=== PATIENT | male | born 1970 | race Caucasian/White ===

== ENCOUNTER 2016-09-27 11:00 | Day surgery (SDC) | payer OTHER ==
[2016-09-27] MEDS ORDERED: DIPHENHYDRAMINE HCL 50 MG/ML VIAL ONE (11:59)
[2016-09-27] MEDS ORDERED: ONDANSETRON HCL INJ/PF 4 MG/2 ML SDV ONE (12:00)
[2016-09-27] MEDS ORDERED: NALOXONE HCL INJ/PF 0.4 MG/1 ML SDV ONE (12:00)
[2016-09-27] MEDS ORDERED: FENTANYL CITRATE INJ/PF 100 MCG/2 ML AMPUL ONE (12:00)
[2016-09-27] MEDS ORDERED: FLUMAZENIL INJ 0.5 MG/5 ML VIAL IV ONE (12:01)
[2016-09-27] MEDS ORDERED: GLUCAGON,HUMAN RECOMB 1 MG INJ ONE (12:01)
[2016-09-27] MEDS ORDERED: EPINEPHRINE INJ 1 MG/10 ML DISP.SYRIN ONE (12:01)
[2016-09-27] MEDS: MIDAZOLAM 2 MG/2 ML INJ ONE ×3 (12:15→12:25)
[2016-09-27 13:31] VITALS: BP 130/76
--- NOTE | 2016-09-27 14:12 | Operative Report ---
Operative Report DATE OF SURGERY: 09/27/16 Operative Report: The risks, benefits and alternatives of the procedure including risks of bleeding, perforation requiring surgery are explained to the patient in detail and informed consent is obtained. Patient is taken back to the endoscopy suite and placed in the left, lateral decubital position. Timeout is called. Conscious sedation medications are provided. An Olympus videoscope was inserted into the patient's rectum. The scope was then gradually advanced all the way to the cecum. The cecum was identified by the usual anatomical landmarks including the ileocecal valve as well as the appendiceal office. Photodocumentation is obtained. The scope was then sequentially pulled back via the various segments of the colon including the ascending colon, hepatic flexure, transverse colon, splenic flexure, descending colon and finally into the rectosigmoid colon. Retroflexion maneuvers performed. PREOPERATIVE DIAGNOSIS: Blood in stools. POSTOPERATIVE DIAGNOSIS: Mild right-sided inflammation. Internal hemorrhoids OPERATION: Colonoscopy with biopsy SURGEON: JOSELITO HALL ANESTHESIA: Moderate Sedation - 5 mg of Versed, 100 g of fentanyl. Conscious sedation monitoring time 30 minutes. TISSUE REMOVED OR ALTERED: Right-sided mucosa: Specimen obtained rule out lymphocytic, collagenous colitis COMPLICATIONS: None. ESTIMATED BLOOD LOSS: none. INTRAOPERATIVE FINDINGS: None. PROCEDURE: Patient tolerated the procedure well. No immediate postprocedure complications are noted. Patient discharged in good condition. Discharge date 09/27/2016 Discharge diet: Regular. Discharge activity: Regular. 2-3 week follow-up to discuss findings. Patient is instructed to call the office or proceed to the emergency room should there be any further problems or questions. We'll await on biopsies.
== END 2016-09-27 13:31 | disposition home or self-care (01) ==
LOC: END 11:00
PROVIDERS: ATTEND Internal Medicine Gastroenterology
PROC: 0DBF8ZX Excision of Right Large Intestine, Via Natural or Artificial Opening Endoscopic, Diagnostic (ICD-10-PCS; principal; 2016-09-27 12:00)
DX: K52.9 Noninfective gastroenteritis and colitis, unspecified (principal); K64.8 Other hemorrhoids; K62.5 Hemorrhage of anus and rectum; Z79.899 Other long term (current) drug therapy
CPT/HCPCS: 45380; 88305 ×2; J2250; J3010; J0171; J1200; J1610; J2310; J2405; J3490

== ENCOUNTER 2018-09-03 20:06 | Emergency (ER) | payer OTHER ==
[2018-09-03 22:56] LABS: ABSOLUTE BASOPHILS # (AUTO) 0.1 10^3/uL (0.0-0.2); ABSOLUTE EOSINOPHILS # (AUTO) 0.2 10^3/uL (0.0-0.6); ABSOLUTE LYMPHOCYTES (AUTO) 1.9 10^3/uL (0.5-4.7); ABSOLUTE MONOCYTES (AUTO) 0.6 10^3/uL (0.1-1.4); ABSOLUTE NEUT (AUTO) 5.4 10^3/uL (1.7-8.2); BASOPHILS % (AUTO) 0.8 % (0-2); EOSINOPHILS % (AUTO) 2.2 % (0-6); HEMATOCRIT 43.5 % (37.9-51.0); HEMOGLOBIN 15.1 g/dL (13.5-17.0); LYMPHOCYTES % (AUTO) 23.1 % (13-45); MEAN CORPUSCULAR HEMOGLOBIN 28.9 pg (27.0-33.4); MEAN CORPUSCULAR HGB CONC 34.7 g/dL (32.0-36.0); MEAN CORPUSCULAR VOLUME 83 fl (80-97); MONOCYTES % (AUTO) 7.6 % (3-13); PLATELET COUNT 292 10^3/uL (150-450); RED BLOOD COUNT 5.23 10^6/uL (4.35-5.55); RED CELL DISTRIBUTION WIDTH 13.1 % (11.5-14.0); SEGMENTED NEUTROPHILS % (AUTO) 66.3 % (42-78); TOTAL CELLS COUNTED % (AUTO) 100 %; WHITE BLOOD COUNT 8.1 10^3/uL (4.0-10.5)
--- NOTE | 2018-09-03 23:03 | ER Document Report ---
ED Medical Screen (RME) - General Chief Complaint: Abdominal Pain Stated Complaint: ABDOMINAL PAIN Time Seen by Provider: 09/03/18 22:44 Primary Care Provider: BRIANA CLARK MD [Primary Care Provider] - Follow up as needed Mode of Arrival: Ambulatory Information source: Patient TRAVEL OUTSIDE OF THE [place] IN LAST 30 DAYS: No - HPI Notes: 09/03/18 23:00 Patient is a 48-year-old male who presents to the emergency department with intermittent abdominal pain for 3 weeks. States that the pain is located around his umbilicus. The pain is sharp in nature. Pain occurs nothing makes it worse or better. Patient complaint of intermittent nausea and vomiting. Normal bowel movements until today and patient reports constipation which is not his normal. Complaint of chills at home. Denies injury to abdomen. - Related Data Allergies/Adverse Reactions: No Known Allergies Allergy (Verified 09/03/18 20:10) Past Medical History - Social History Chew tobacco use (# tins/day): No Frequency of alcohol use: Occasional Drug Abuse: None - Past Medical History Cardiac Medical History: Denies: Hx Coronary Artery Disease, Hx Heart Attack, Hx Hypertension Pulmonary Medical History: Denies: Hx Asthma, Hx Bronchitis, Hx COPD, Hx Pneumonia Neurological Medical History: Denies: Hx Cerebrovascular Accident, Hx Seizures Renal/ Medical History: Denies: Hx Peritoneal Dialysis Musculoskeltal Medical History: Denies Hx Arthritis - Immunizations Hx Diphtheria, Pertussis, Tetanus Vaccination: Yes Physical Exam - Vital signs Interpretation: Normal - Abdominal Inspection: Normal Distension: Distended Bowel sounds: Normal Tenderness: Tender - SIGNIFICANT UMBILICAL TENDERNESS WITH PALPATION Organomegaly: No organomegaly Course - Re-evaluation Re-evalutation: 09/03/18 23:03 Patient appears to have an umbilical hernia. Umbilicus bulging and extremely tender to touch. Unable to reduce in triage. JOSE MANUEL changed to level 2. I have greeted and performed a rapid initial assessment of this patient. A comprehensi ve ED assessment and evaluation of the patient, analysis of test results and completion of the medical decision making process will be conducted by additional ED providers. 09/03/18 23:05 - Laboratory Result Diagrams: 09/03/18 22:34 09/03/18 22:34 Doctor's Discharge - Discharge Referrals: BRIANA CLARK MD [Primary Care Provider] - Follow up as needed
[2018-09-03 23:13] LABS: ANION GAP 9 (5-19); BLOOD UREA NITROGEN 20 mg/dL (7-20); CALCIUM 10.1 mg/dL (8.4-10.2); CARBON DIOXIDE 28 mmol/L (22-30); CHLORIDE 105 mmol/L (98-107); GLUCOSE 98 mg/dL (75-110); POTASSIUM 4.1 mmol/L (3.6-5.0); SODIUM 141.6 mmol/L (137-145)
[2018-09-03 23:31] LABS: APPEARANCE,URINE CLEAR; BILIRUBIN,URINE NEGATIVE (NEGATIVE); COLOR,URINE YELLOW; GLUCOSE, URINE NEGATIVE (NEGATIVE); KETONES,URINE NEGATIVE (NEGATIVE); LEUKOCYTE ESTERASE,URINE NEGATIVE (NEGATIVE); NITRITE,URINE NEGATIVE (NEGATIVE); PROTEIN,URINE NEGATIVE (NEGATIVE); URINE SPECIFIC GRAVITY 1.029; UROBILINOGEN,URINE NEGATIVE mg/dL (<2.0)
--- NOTE | 2018-09-04 00:23 | ER Document Report ---
ED General - General Chief Complaint: Abdominal Pain Stated Complaint: ABDOMINAL PAIN Time Seen by Provider: 09/03/18 22:44 Primary Care Provider: LOUISE FUENTES MD [ACTIVE STAFF] - Follow up tomorrow ELIS MELCHOR MD [ACTIVE STAFF] - Follow up tomorrow Mode of Arrival: Ambulatory Notes: Patient is a 48-year-old male that presents to the emergency department for chief complaint of abdominal pain. Patient states he is noticed a hernia around his umbilicus for the past 3 weeks, but seemingly is worse the past week, he has had a few episodes of vomiting, had some nausea as well. He has been having bowel movements though his last one was this morning. He currently rates his pain as a 6 out of 10 describes as a constant ache with occasional sharp pain around the umbilicus itself. Denies any any fevers, chills, night sweats, chest pain, shortness of breath or difficulty breathing. Past Medical History: Denies chronic medical conditions Past Surgical History: Foot surgery, finger surgery Social History: Denies tobacco, alcohol or drug use. Family History: Reviewed and noncontributory for presenting illness Allergies: Reviewed, see documented allergy list. REVIEW OF SYSTEMS: Other than noted above, the 12 point review of systems was reviewed with the patient and were negative, all pertinent findings are included in the HPI. PHYSICAL EXAMINATION: Vital signs reviewed, nursing noted reviewed. GENERAL: Well-appearing, well-nourished and in no acute distress. HEAD: Atraumatic, normocephalic. EYES: Eyes appear normal, extraocular movements intact, sclera anicteric, conjunctiva are normal. ENT: nares patent, oropharynx clear without exudates. Moist mucous membranes. NECK: Normal range of motion, supple without lymphadenopathy LUNGS: Breath sounds clear to auscultation bilaterally and equal. No wheezes rales or rhonchi. HEART: Regular rate and rhythm without murmurs ABDOMEN: Soft, obese, moderate-sized umbilical hernia, no ecchymosis, mild tenderness to palpation, normoactive bowel sounds. No rebound, guarding, or rigidity. No masses appreciated. EXTREMITIES: Nontender, good range of motion, no pitting or edema. NEUROLOGICAL: No focal neurological deficits. Moves all extremities spontaneously Motor and sensory grossly intact on exam. PSYCH: Normal mood, normal affect. SKIN: Warm, Dry, normal turgor, no rashes or lesions noted on exposed skin TRAVEL OUTSIDE OF THE [place] IN LAST 30 DAYS: No - Related Data Allergies/Adverse Reactions: No Known Allergies Allergy (Verified 09/03/18 20:10) Past Medical History - General Information source: Patient - Social History Smoking Status: Never Smoker Chew tobacco use (# tins/day): No Frequency of alcohol use: Occasional Drug Abuse: None Family History: Reviewed & Not Pertinent Patient has suicidal ideation: No Patient has homicidal ideation: No - Past Medical History Cardiac Medical History: Denies: Hx Coronary Artery Disease, Hx Heart Attack, Hx Hypertension Pulmonary Medical History: Denies: Hx Asthma, Hx Bronchitis, Hx COPD, Hx Pneumonia Neurological Medical History: Denies: Hx Cerebrovascular Accident, Hx Seizures Renal/ Medical History: Denies: Hx Peritoneal Dialysis Musculoskeletal Medical History: Denies Hx Arthritis - Immunizations Hx Diphtheria, Pertussis, Tetanus Vaccination: Yes Course - Re-evaluation Re-evalutation: Patient seen and examined vital signs reviewed. Laboratory data and/or imaging were ordered as appropriate for the patient's presenting symptoms and complaint, with consideration of any critical or life threatening conditions that may be associated with their obtained history and exam as noted above. Patient was treated with IV fentanyl and zofran, and was placed in the Trendelenburg position, and his umbilical hernia was able to be gently massaged, and reduced without difficulty and patient tolerated well. Results were reviewed when available and demonstrated unremarkable blood work, normal lactic acid The patient was re-evaluated and was stable Evaluation was most consistent with reducible umbilical hernia, will refer to surgery. Patient agreeable. Results were discussed with the patient at this point, after careful consideration I feel that that patient can be discharged from the emergency department, the patient was educated treatments and reasons to return to the emergency department based on their presumed diagnosis as noted above, they were advised to followup with a primary care physician in 2-3 days. Patient was agreeable to plan of care. *Note is created using voice recognition software and may contain spelling, syntax or grammatical errors. Laboratory 09/03/18 09/03/18 09/03/18 22:34 22:34 22:34 WBC 8.1 RBC 5.23 Hgb 15.1 Hct 43.5 MCV 83 MCH 28.9 MCHC 34.7 RDW 13.1 Plt Count 292 Seg Neutrophils % 66.3 Lymphocytes % 23.1 Monocytes % 7.6 Eosinophils % 2.2 Basophils % 0.8 Absolute Neutrophils 5.4 Absolute Lymphocytes 1.9 Absolute Monocytes 0.6 Absolute Eosinophils 0.2 Absolute Basophils 0.1 Sodium 141.6 Potassium 4.1 Chloride 105 Carbon Dioxide 28 Anion Gap 9 BUN 20 Creatinine 0.85 Est GFR ( Amer) > 60 Est GFR (Non-Af Amer) > 60 Glucose 98 Lactic Acid Calcium 10.1 Urine Color YELLOW Urine Appearance CLEAR Urine pH 5.0 Ur Specific Cope 1.029 Urine Protein NEGATIVE Urine Glucose (UA) NEGATIVE Urine Ketones NEGATIVE Urine Blood NEGATIVE Urine Nitrite NEGATIVE Urine Bilirubin NEGATIVE Urine Urobilinogen NEGATIVE Ur Leukocyte Esterase NEGATIVE Urine WBC (Auto) 0 Urine RBC (Auto) 0 U Hyaline Cast (Auto) 1 Urine Mucus (Auto) OCC Urine Ascorbic Acid NEGATIVE 09/03/18 23:47 WBC RBC Hgb Hct MCV MCH MCHC RDW Plt Count Seg Neutrophils % Lymphocytes % Monocytes % Eosinophils % Basophils % Absolute Neutrophils Absolute Lymphocytes Absolute Monocytes Absolute Eosinophils Absolute Basophils Sodium Potassium Chloride Carbon Dioxide Anion Gap BUN Creatinine Est GFR ( Amer) Est GFR (Non-Af Amer) Glucose Lactic Acid 1.1 Calcium Urine Color Urine Appearance Urine pH Ur Specific Cope Urine Protein Urine Glucose (UA) Urine Ketones Urine Blood Urine Nitrite Urine Bilirubin Urine Urobilinogen Ur Leukocyte Esterase Urine WBC (Auto) Urine RBC (Auto) U Hyaline Cast (Auto) Urine Mucus (Auto) Urine Ascorbic Acid - Laboratory Result Diagrams: 09/03/18 22:34 09/03/18 22:34 Discharge - Discharge Clinical Impression: Umbilical hernia Qualifiers: Obstruction and gangrene presence: without obstruction or gangrene Qualified Code(s): K42.9 - Umbilical hernia without obstruction or gangrene Condition: Stable Disposition: HOME, SELF-CARE Instructions: Umbilical Hernia ([facility]) Additional Instructions: Please avoid any heavy lifting going forward, you can resume a normal diet, and please follow-up with the surgeon's office, call for an appointment tomorrow, to schedule an office appointment, and inevitably surgery. If you develop severe pain, persistent vomiting, do not hesitate to return to the emergency department. Referrals: LOUISE FUENTES MD [ACTIVE STAFF] - Follow up tomorrow ELIS MELCHOR MD [ACTIVE STAFF] - Follow up tomorrow
[2018-09-04] MEDS ORDERED: ONDANSETRON HCL INJ/PF 4 MG/2 ML SDV IV ONE (00:42)
[2018-09-04] MEDS ORDERED: FENTANYL CITRATE INJ/PF 100 MCG/2 ML AMPUL IV ONE (00:42)
[2018-09-04 01:45] VITALS: BP 119/73
== END 2018-09-04 01:45 | disposition home or self-care (01) ==
LOC: ER 20:06
DX: K42.9 Umbilical hernia without obstruction or gangrene (principal); R10.33 Periumbilical pain; R11.2 Nausea with vomiting, unspecified
CPT/HCPCS: 99284; 96374; 96375; 36415; 83605; 85025; 80048; 81001; J3010; J2405

== ENCOUNTER → 2018-09-15 | Outpatient (CLI) | payer OTHER ==
[2018-09-15 17:26] LABS: HEMATOCRIT 42.3 % (37.9-51.0); HEMOGLOBIN 15.2 g/dL (13.5-17.0); MEAN CORPUSCULAR HEMOGLOBIN 29.8 pg (27.0-33.4); MEAN CORPUSCULAR HGB CONC 35.9 g/dL (32.0-36.0); MEAN CORPUSCULAR VOLUME 83 fl (80-97); PLATELET COUNT 316 10^3/uL (150-450); RED BLOOD COUNT 5.09 10^6/uL (4.35-5.55); WHITE BLOOD COUNT 8.7 10^3/uL (4.0-10.5)
[2018-09-15 17:50] LABS: ANION GAP 7 (5-19); BLOOD UREA NITROGEN 17 mg/dL (7-20); CALCIUM 9.9 mg/dL (8.4-10.2); CARBON DIOXIDE 26 mmol/L (22-30); CHLORIDE 105 mmol/L (98-107); GLUCOSE 116 mg/dL (75-110); POTASSIUM 4.9 mmol/L (3.6-5.0); SODIUM 137.9 mmol/L (137-145)
--- NOTE | 2018-09-15 19:41 | EKG REPORT ---
SEVERITY:- BORDERLINE ECG - SINUS RHYTHM NONSPECIFIC ST-T CHANGES- INFERIOR LEADS : Confirmed by: Pedro Hanna MD 15-Sep-2018 19:40:45
== END ==
LOC: OD 15:45
PROVIDERS: ATTEND Surgery
DX: Z01.818 Encounter for other preprocedural examination (principal); K42.9 Umbilical hernia without obstruction or gangrene; Z78.9 Other specified health status
CPT/HCPCS: 36415; 80048; 85027; 93005; 93010

== ENCOUNTER 2018-10-10 10:19 | Day surgery (SDC) | payer OTHER ==
[2018-10-03 09:50] LABS: HEMOGLOBIN 14.9 g/dL (13.5-17.0); MEAN CORPUSCULAR HGB CONC 33.9 g/dL (32.0-36.0); MEAN CORPUSCULAR VOLUME 83 fl (80-97); PLATELET COUNT 257 10^3/uL (150-450); RED BLOOD COUNT 5.33 10^6/uL (4.35-5.55); RED CELL DISTRIBUTION WIDTH 12.8 % (11.5-14.0); WHITE BLOOD COUNT 5.9 10^3/uL (4.0-10.5)
[2018-10-03 10:10] LABS: ANION GAP 11 (5-19); BLOOD UREA NITROGEN 16 mg/dL (7-20); CALCIUM 9.5 mg/dL (8.4-10.2); CARBON DIOXIDE 25 mmol/L (22-30); CHLORIDE 104 mmol/L (98-107); GLUCOSE 112 mg/dL (75-110); POTASSIUM 4.4 mmol/L (3.6-5.0); SODIUM 140.4 mmol/L (137-145)
[~2018-10-10 10:19] MED LIST: CEFAZOLIN 1 GM/D5W RTU 1 GM/50 ML RTUPB IV PRN; CEFAZOLIN 2 GM/D5W RTU 2 GM/50 ML RTUPB IV PRN; DEXAMETHASONE SOD PHOSPHATE INJ 4 MG/1 ML VIAL ONE; FENTANYL CITRATE INJ/PF 100 MCG/2 ML AMPUL ONE; FENTANYL CITRATE INJ/PF 250 MCG/5 ML AMPULE ONE; IBUPROFEN 800 MG in NORMAL SALINE 250 ML IV PRN; LACTATED RINGERS 1000 ML IV PRN; LIDOCAINE 0.5% INJ-PF (5 MG/ML) 50 ML SDV SUBCUT PRN; MIDAZOLAM 2 MG/2 ML INJ ONE; ONDANSETRON HCL INJ/PF 4 MG/2 ML SDV ONE; PROPOFOL INJ 200 MG/20 ML VIAL IV ONE; SUGAMMADEX SODIUM 200 MG/2 ML SDV IV ONE
[2018-10-10] MEDS ORDERED: CEFAZOLIN 2 GM/D5W RTU 2 GM/50 ML RTUPB IV ONE (10:28)
[2018-10-10] MEDS ORDERED: BUPIVACAINE HCL 0.25 % INJ/PF (2.5 MG/1 ML) 30 ML VIAL ONE (13:25)
[2018-10-10] MEDS ORDERED: PROMETHAZINE HCL INJ 25 MG/1 ML VIAL IV PRN ×2 (13:51)
[2018-10-10] MEDS ORDERED: MORPHINE SULFATE 10 MG/ML INJ IV PRN (13:51)
[2018-10-10] MEDS ORDERED: DIPHENHYDRAMINE HCL 50 MG/ML VIAL IV PRN (13:51)
[2018-10-10] MEDS ORDERED: MEPERIDINE HCL/PF INJ 25 MG/1 ML DISP.SYRIN IV PRN (13:51)
[2018-10-10] MEDS ORDERED: FENTANYL CITRATE INJ/PF 100 MCG/2 ML AMPUL IV PRN ×3 (13:51)
[2018-10-10] MEDS ORDERED: ONDANSETRON HCL INJ/PF 4 MG/2 ML SDV IV PRN (13:51)
[2018-10-10] MEDS ORDERED: KETOROLAC TROMETHAMINE 60 MG/2 ML SDV ONE (14:24)
[2018-10-10] MEDS ORDERED: SUCCINYLCHOLINE CHLORIDE INJ 200 MG/10 ML VIAL ONE (14:24)
[2018-10-10] MEDS ORDERED: ROCURONIUM BROMIDE INJ 50 MG/5 ML VIAL IV ONE (14:24)
[2018-10-10] MEDS: HYDROMORPHONE HCL INJ/PF 2 MG/ML AMPULE ONE ×2 (16:28→16:33)
[2018-10-10 18:56] VITALS: BP 127/85
--- NOTE | 2018-10-11 12:43 | Discharge Summary ---
Discharge Summary (SDC) - Discharge Final Diagnosis: Symptomatic umbilical hernia with diastases recti. Date of Surgery: 10/10/18 Discharge Date: 10/10/18 Condition: Stable Forms: ASU Anesthesia D/C Instruction, Discharge POC-Surgical Service Referrals: ELIS MELCHOR MD [ACTIVE STAFF] - 10/21/18 2:15 pm SUE NATARAJAN DO [Primary Care Provider] - Respiratory Treatments at Home: Deep Breathing/Coughing Discharge Activity: No Lifting Over 10 Pounds Home Care Assistance: Provided by Family Report the Following to Your Physician Immediately: Shortness of Breath, Increase in Pain, Fever over 101 Degrees, Unusual Bleeding, Redness, Swelling, Warmth, Increased Soreness, Drainage-Yellow, IV Site Infection Signs
--- NOTE | 2018-10-11 12:53 | Operative Report ---
Nonrecallable Operative Report DATE OF SURGERY: 10/10/18 PREOPERATIVE DIAGNOSIS: Symptomatic umbilical hernia and diastases recti. POSTOPERATIVE DIAGNOSIS: Same as above. OPERATION: Robot-assisted laparoscopic ventral hernia repair with mesh and plication of diastases recti. SURGEON: ELIS DOWLING REAL ESTATE EXECUTIVE ASSISTANT: KIARA SMITH ANESTHESIA: GA TISSUE REMOVED OR ALTERED: None COMPLICATIONS: None apparent ESTIMATED BLOOD LOSS: Minimal PROCEDURE: Drains/implants: 15 x [address] hernia mesh. Procedure in detail: After informed consent was obtained, the patient was brought to the operating room and laid in the supine position. The area of the abdomen was prepped and draped in a normal sterile fashion. A 15 blade scalpel was used to create a left upper quadrant incision. This was used to insert the 5 mm Optiview trocar under direct laparoscopic visualization. Once the trocar was inserted into the abdomen, gas insufflation was attached. The peritoneum was then achieved. A 12 mm left lateral trocar was placed under direct laparoscopic visualization, as well as a left lower quadrant 8 mm robotic trocar. The left upper quadrant 5 mm trocar was then removed, and replaced with a robotic 8 mm trocar. The robot was then brought over the patient and docked appropriately. I then assumed my position at the surgeon's console. Attention was turned to the umbilical hernia defect. The patient had a generous amount of preperitoneal fat, secondary to this, a preperitoneal placement of the mesh was felt to be feasible. The peritoneum was opened on the left lateral abdomen and a preperitoneal dissection was undertaken. This was done cranially up to the xiphoid process and caudally to approximately 10 cm below the umbilical hernia defect. Once the peritoneum was completely freed, the diastases recti and hernia defect were reapproximated using nonabsorbable number 1 V lock suture in simple running fashion. Next a 15 x [address] hernia mesh was felt to adequately cover the defect as well as diastases. The hernia mesh was inserted into the abdomen and apposed to the anterior abdominal fascia. It was sutured into place using 2-0 nonabsorbable V lock suture in simple running fashion circumferentially, and through the middle of the mesh. The peritoneum was reapproximated to the anterior abdominal wall, isolating the mesh from the abdominal cavity. Once this was completed the robot was undocked, and I scrubbed back into the case. The 8 mm robotic trocar sites were closed using 0 Vicryl suture in simple interrupted fashion with the aid of the Robbin-Rosemary device. The left lateral 12 mm trocar site was closed using 0 Vicryl suture in [id number] fashion with the aid of the Robbin Rosemary device. The overlying skin was then closed using 4-0 Vicryl Rapide suture in subcuticular fashion. All sponge, instrument, and needle counts were correct x2. Dressings were placed, and the procedure was concluded. Condition: Stable. Kiara Smith PA-C was scrubbed for the procedure. She assisted with many portions of the procedure including placement of the trochars, docking the robot, exchanging of the robotic instruments, manipulation of the camera.
== END 2018-10-10 18:35 | disposition home or self-care (01) ==
LOC: OROUT 10:19
PROVIDERS: ATTEND Surgery
DX: K42.9 Umbilical hernia without obstruction or gangrene (principal); M62.08 Separation of muscle (nontraumatic), other site
CPT/HCPCS: 49652; S2900; 36415; 752; 80048; 85027; 86850; 86900; 86901; C1781; J0330; J0690; J1100; J1170; J1741; J1885; J2250; J2405; J2704; J3010; J3490; J7050

== ENCOUNTER → 2018-11-24 | Outpatient (CLI) | payer OTHER ==
--- NOTE | 2018-11-24 11:16 | RADIOLOGY REPORT (SQ) ---
EXAM DESCRIPTION: HAND RIGHT 3 VIEWS COMPLETED DATE/TIME: 11/24/2018 9:34 am REASON FOR STUDY: CONTRACTURE, RIGHT HAND M24.541 CONTRACTURE, RIGHT HAND M25.562 PAIN IN LEFT KNE E M25.561 PAIN IN RIGHT KNEE COMPARISON: None. EXAM PARAMETERS: NUMBER OF VIEWS: Three views. TECHNIQUE: AP, lateral and oblique radiographic images acquired of the right hand. LIMITATIONS: None. FINDINGS: MINERALIZATION: Normal. BONES: No acute fracture or dislocation. No worrisome bone lesions. JOINTS: No effusions. SOFT TISSUES: No soft tissue swelling. No foreign body. OTHER: There are 2 small screws in the 3rd middle phalanx. The 3rd and 4th digits are apparently in a fixed partially flexed position. IMPRESSION: No acute abnormality in the right hand. Findings as described. TECHNICAL DOCUMENTATION: JOB ID: [id number] [employer]- All Rights Reserved Reading location - IP/workstation name: [email or web address]
--- NOTE | 2018-11-24 11:17 | RADIOLOGY REPORT (SQ) ---
EXAM DESCRIPTION: KNEE LEFT 4 VIEWS COMPLETED DATE/TIME: 11/24/2018 9:34 am REASON FOR STUDY: PAIN IN LT KNEE M24.541 CONTRACTURE, RIGHT HAND M25.562 PAIN IN LEFT KNEE M25.56 1 PAIN IN RIGHT KNEE COMPARISON: None. NUMBER OF VIEWS: Four views. TECHNIQUE: AP, lateral, and both oblique radiographic images acquired of the left knee. LIMITATIONS: None. FINDINGS: MINERALIZATION: Normal. BONES: No acute fracture or dislocation. No worrisome bone lesions. JOINT: No effusion. SOFT TISSUES: No soft tissue swelling. No radio-opaque foreign body. OTHER: No other significant finding. IMPRESSION: NEGATIVE STUDY OF THE LEFT KNEE. NO RADIOGRAPHIC EVIDENCE OF ACUTE INJURY. TECHNICAL DOCUMENTATION: JOB ID: [id number] [employer]- All Rights Reserved Reading location - IP/workstation name: [email or web address]
--- NOTE | 2018-11-24 11:18 | RADIOLOGY REPORT (SQ) ---
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 NUMBER OF VIEWS: Four views. TECHNIQUE: AP, lateral, and both oblique radiographic images acquired of the right knee. LIMITATIONS: None. FINDINGS: MINERALIZATION: Normal. BONES: No acute fracture or dislocation. No worrisome bone lesions. JOINT: No effusion. SOFT TISSUES: No soft tissue swelling. No radio-opaque foreign body. OTHER: No other significant finding. IMPRESSION: NEGATIVE STUDY OF THE RIGHT KNEE. NO RADIOGRAPHIC EVIDENCE OF ACUTE INJURY. TECHNICAL DOCUMENTATION: JOB ID: [id number] [employer]- All Rights Reserved Reading location - IP/workstation name: [email or web address]
== END ==
LOC: OD 09:02
PROVIDERS: ATTEND Family Medicine
DX: M24.541 Contracture, right hand (principal); M25.562 Pain in left knee; M25.561 Pain in right knee